=== PATIENT | male | born 1945 | race Caucasian/White ===

== ENCOUNTER 2024-10-03 13:16 | Emergency (ER) | payer MEDICARE, SELFPAY ==
[2024-10-03 13:26] VITALS: PULSE 67; TEMP 36.7; O2SAT 95; BMI 36.2
[2024-10-03 13:39] VITALS: BP 142/77
--- NOTE | 2024-10-03 13:40 | XR_ITS ---
The [address] [address] Patient Name: GABBIE AUGUSTE MRN: [id number] date: 1945 Sex: M Assigned Patient Location: ER Current Patient Location: ER Accession/Order Number: [id number] Exam Date: 10/03/2024 14:03 Report Date: 10/03/2024 14:29 At the request of: DARYL PALMA Procedure: XR chest 2V EXAMINATION: XR chest 2V HISTORY: cough COMPARISON: No relevant comparison available. TECHNIQUE: PA and lateral FINDINGS: LUNGS: No significant pulmonary parenchymal abnormalities. Low lung volumes VASCULATURE: No increased pulmonary vasculature. PLEURA: No pneumothorax, effusion, or pleural thickening. CARDIAC: No cardiomegaly or cardiac silhouette abnormality. MEDIASTINUM: No visible mass or adenopathy. Left pacemaker. Median sternotomy wires BONES: No fracture or visible bone lesion. OTHER: Negative. XR/XR chest 2V IMPRESSION: Low volume exam, clear lungs Electronically authenticated by: ORI BURGESS Date: 10/03/2024 14:29
--- NOTE | 2024-10-03 13:40 | ED.URI1 ---
HPI - URI/Sore Throat General Chief Complaint: Upper Respiratory Infection Stated Complaint: GENRAL WEAKNESS Time Seen by Provider: 10/03/24 13:33 Source: patient Limitations: no limitations History of Present Illness HPI Narrative: C/o cough, sinus congestion/drainage/pressure, ear pain, sore throat. Pain to the left ear is greater than the right. Onset was 1-2 days ago. He was evaluated at another ER and an urgent care today prior to coming to the [place] ER. Pt states he has had two negative Covid-19 and influenza tests today. Denies fever, chills, SOB, N/V/D. Today the [facility] in [place] prescribed tessalon perles for his cough and wwaqiprw-ldumtgoby-BC drops for otitis externa. The patient has not picked up the prescriptions. States his left ear has continued to have pain. He has not had medication for his discomfort today. Related Data Home Medications ?Medication ?Instructions ?Recorded ?Confirmed apixaban 5 mg tablet (Eliquis) 5 mg PO BID 10/03/24 10/03/24 Previous Rx's ?Medication ?Instructions ?Recorded guaifenesin 600 mg tablet, 600 mg PO BID PRN congestion #10 10/03/24 extended release 12 hr (Mucinex) tabs prednisone 20 mg tablet 40 mg (2 x 20 mg) PO DAILY 5 days 10/03/24 #10 tabs Allergies Allergy/AdvReac Type Severity Reaction Status Date / Time Sulfa (Sulfonamide Allergy Mild Rash Verified 10/03/24 13:31 Antibiotics) Review of Systems ROS Constitutional Denies: fever or chills Ears, nose, mouth, and throat Reports: throat pain; Denies: neck pain Cardiovascular Denies: chest pain Respiratory Denies: shortness of breath Gastrointestinal Denies: abdominal pain, nausea, vomiting or diarrhea Musculoskeletal Denies: back pain or neck pain Integumentary/Breast Denies: rash Neurological Denies: headache, numbness in extremities or dizziness PFSH PFSH Social History Little interest or pleasure in doing things: not at all Feeling down, depressed, or hopeless: not at all Exam Constitutional Vital Signs, click to edit/add: Last Vital Signs Temp 98.1 F 10/03/24 13:26 Pulse 67 10/03/24 13:26 Resp 17 10/03/24 13:26 BP 142/77 H 10/03/24 13:39 Pulse Ox 95 10/03/24 13:26 O2 Del Method Room Air 10/03/24 13:26 Common normals: no apparent distress and oriented x3 General appearance: cooperative HENMT Common normals: normocephalic Face and sinus: normal facial exam Nose: external nose normal External ear: external ears normal External auditory canal: EAC abnormal EAC laterality: left erythema and EAC tenderness Tympanic membrane: TMs normal bilaterally Mouth: oral and palatal mucosa normal, lip normal and tongue normal Throat: posterior oropharynx normal and uvula midline Eye Common normals: conjunctivae normal Neck & C-Spine Common normals: supple Respiratory Common normals: normal respiratory effort, no use of accessory muscles and clear to auscultation bilaterally Effort & inspection: able to speak in complete sentences and symmetric chest movement Cardio Common normals: regular rate and regular rhythm Neuro Common normals: oriented x3 and moves all extremities Sensorium/orientation: awake and alert Course Vital Signs Vital signs: Vital Signs Temperature 98.1 F 10/03/24 13:26 Pulse Rate 67 10/03/24 13:26 Respiratory Rate 17 10/03/24 13:26 Pulse Oximetry 95 10/03/24 13:26 Oxygen Delivery Method Room Air 10/03/24 13:26 Temperature 98.1 F 10/03/24 13:26 Pulse Rate 67 10/03/24 13:26 Respiratory Rate 17 10/03/24 13:26 Blood Pressure 142/77 H 10/03/24 13:39 Pulse Oximetry 95 10/03/24 13:26 Oxygen Delivery Method Room Air 10/03/24 13:26 MDM - URI/Sore Throat MDM Narrative Medical decision making narrative: Strep screen was negative. Chest x-ray was negative for acute findings. Pt reported two negative Covid-19 and influenza tests today at two other facilities. Earlier today pt was given prescriptions for Tessalon perles and dfymlmva-oahtbelrp-BV drops for left otitis externa. Prescriptions were provided for Mucinex and prednisone. Follow up with pcp for a recheck, further evaluation and treatment. Return to the ER for new or worsening symptoms. Differential Diagnosis Differential diagnosis: Likely upper respiratory infection, otitis media, viral infection, bronchitis and pharyngitis Medical Records Attestation: I reviewed the patient's medical records. Lab Data Attestation: I reviewed the patient's lab results. Labs: Lab Results 10/03/24 Range/Units 13:45 Streptococcus Screen Negative Discharge Plan Discharge Chief Complaint: Upper Respiratory Infection Clinical Impression: Upper respiratory infection, viral, Otitis externa Patient Disposition: Home, Self-Care Time of Disposition Decision: 14:38 Condition: Good Mode of Transportation: Private Vehicle Prescriptions / Home Meds: New guaifenesin [Mucinex] 600 mg tablet extended release 12hr 600 mg PO BID PRN (Reason: congestion) Qty: 10 0RF prednisone 20 mg tablet 40 mg PO DAILY 5 Days Qty: 10 0RF No Action Eliquis 5 mg tablet 5 mg PO BID Print Language: Latvian Instructions: Swimmer's Ear (ED), Upper Respiratory Infection (ED) Additional Instructions: Return to the ER for new or worsening symptoms. Use the antibiotic ear drops you were prescribed as directed. Referrals: RAUL MYRICK [Primary Care Provider] - 1 week Discharge Date/Time: 10/03/24 14:53
[2024-10-03] MEDS: DEXAMETHASONE SOD PHOS 10 MG/ML VIAL PO (13:56)
[2024-10-03] MEDS: ACETAMINOPHEN 500 MG TABLET PO (13:57)
[2024-10-03] MEDS: CETIRIZINE HCL 10 MG TABLET PO (13:57)
[2024-10-03 14:06] LABS: Internal Control Within Normal Limits; Strep A Antigen Screen Negative
== END 2024-10-03 14:53 | disposition home or self-care (01) ==
PROVIDERS: Nurse Practitioner Family; Emergency Provider Emergency Medicine; PCP Internal Medicine
DX: J06.9 Acute upper respiratory infection, unspecified (principal); H60.92 Unspecified otitis externa, left ear
CPT/HCPCS: 71046; 87070; 87880; 99284; J1100

== ENCOUNTER 2024-11-17 04:56 | Emergency (ER) | payer MEDICARE, SELFPAY ==
[2024-11-17 04:58] VITALS: BP 147/60; PULSE 70; TEMP 37; O2SAT 96; BMI 35.4
--- NOTE | 2024-11-17 05:09 | XR_ITS ---
The [address] [address] Patient Name: GABBIE AUGUSTE MRN: [id number] date: 1945 Sex: M Assigned Patient Location: ER Current Patient Location: ER Accession/Order Number: [id number] Exam Date: 11/17/2024 05:25 Report Date: 11/17/2024 05:43 At the request of: MATTHIAS WASHBURN Procedure: XR chest 1V EXAM: XR chest 1V HISTORY: Cough COMPARISON: Chest radiograph dated 10/03/2024. TECHNIQUE: AP erect portable chest radiograph performed. FINDINGS: Stable median sternotomy wires. Stable left subclavian dual-lead pacemaker with leads overlying the right atrium and the right ventricle. Stable mild prominence of the cardiac silhouette. Stable mild atheromatous calcification at the aortic arch. Persistently low lung volumes. There is mild linear density at the right lung base which most likely is atelectasis. There is no additional consolidation, pleural effusion or pulmonary vascular congestion. There is no pneumothorax or acute osseous abnormality. XR/XR chest 1V IMPRESSION: Persistently low lung volumes. There is mild linear density at the right lung base which most likely is atelectasis. There is no additional consolidation, pleural effusion or pulmonary vascular congestion. Electronically authenticated by: LENORE MORRIS Date: 11/17/2024 05:43
--- NOTE | 2024-11-17 05:09 | ED.URI1 ---
HPI - URI/Sore Throat General Chief Complaint: Upper Respiratory Infection Stated Complaint: SINUS Time Seen by Provider: 11/17/24 05:06 Source: patient History of Present Illness HPI Narrative: 79-year-old male presents for cough and congestion. He has been coughing up some clear phlegm, no hemoptysis and he has not had a fever. He has had the symptoms for a few days. He was worried about having pneumonia. Related Data Home Medications ?Medication ?Instructions ?Recorded ?Confirmed apixaban 5 mg tablet (Eliquis) 5 mg PO BID 10/03/24 10/03/24 Previous Rx's ?Medication ?Instructions ?Recorded guaifenesin 600 mg tablet, 600 mg PO BID PRN congestion #10 10/03/24 extended release 12 hr (Mucinex) tabs prednisone 20 mg tablet 40 mg (2 x 20 mg) PO DAILY 5 days 10/03/24 #10 tabs benzonatate 100 mg capsule 100 mg PO TID PRN cough #20 caps 11/17/24 loratadine 5 mg-pseudoephedrine ER 1 tab PO Q12H PRN nasal congestion 11/17/24 120 mg tablet,extended #20 tabs release,12hr (Claritin-D 12 Hour) Allergies Allergy/AdvReac Type Severity Reaction Status Date / Time Sulfa (Sulfonamide Allergy Mild Rash Verified 10/03/24 13:31 Antibiotics) Review of Systems ROS Narrative A ten point review of systems is negative except as noted above. PFSH PFSH Social History Little interest or pleasure in doing things: not at all Feeling down, depressed, or hopeless: not at all Exam Narrative Exam Narrative: Nurses note and vital signs reviewed and patient is not hypoxic. General: The patient coughs frequently and is in no acute respiratory distress Skin: Warm, dry, no pallor noted. There is no rash noted. Head: Normocephalic, atraumatic Eye: Normal conjunctiva, no drainage Ears, Nose, Mouth, and Throat: oral mucosa is moist. Nares patent. Cardiovascular: Regular Rate and Rhythm Respiratory: Coughs frequently, no accessory muscle use, lungs are clear to auscultation, no wheezing, rales or rhonchi Back: non-tender GI: Soft and nontender Musculoskeletal: The patient has no evidence of calf tenderness, no pitting edema, symmetrical pulses noted bilaterally Neurological: A&O, normal speech Psychiatric: Cooperative Constitutional Vital Signs, click to edit/add: Last Vital Signs Temp 98.6 F 11/17/24 04:58 Pulse 70 11/17/24 04:58 Resp 20 11/17/24 04:58 BP 147/60 H 11/17/24 04:58 Pulse Ox 96 11/17/24 04:58 O2 Del Method Room Air 11/17/24 04:58 Course Vital Signs Vital signs: Vital Signs Temperature 98.6 F 11/17/24 04:58 Pulse Rate 70 11/17/24 04:58 Respiratory Rate 20 11/17/24 04:58 Blood Pressure 147/60 H 11/17/24 04:58 Pulse Oximetry 96 11/17/24 04:58 Oxygen Delivery Method Room Air 11/17/24 04:58 Temperature 98.6 F 11/17/24 04:58 Pulse Rate 70 11/17/24 04:58 Respiratory Rate 20 11/17/24 04:58 Blood Pressure 147/60 H 11/17/24 04:58 Pulse Oximetry 96 11/17/24 04:58 Oxygen Delivery Method Room Air 11/17/24 04:58 MDM - URI/Sore Throat MDM Narrative Medical decision making narrative: The patient's workup is negative. My clinical impression is that he has a viral URI and he will be treated symptomatically. Treatment diagnosis and follow-up were discussed with the patient. Differential Diagnosis Differential diagnosis: Likely upper respiratory infection, viral infection, influenza and other (COVID, pneumonia) Lab Data Labs: Lab Results 11/17/24 Range/Units 05:05 Influenza Type A Ag Negative Influenza Type B Ag Negative SARS-CoV-2 Ag (CV2AG) Negative (NEGATIVE) Imaging Data Chest x-ray: Radiologist's impression: ITS Impressions Chest X-Ray 11/17/24 05:09 IMPRESSION: Persistently low lung volumes. There is mild linear density at the right lung base which most likely is atelectasis. There is no additional consolidation, pleural effusion or pulmonary vascular congestion. Electronically authenticated by: LENORE MORRIS Date: 11/17/2024 05:43 Discharge Plan Discharge Chief Complaint: Upper Respiratory Infection Clinical Impression: Upper respiratory infection, viral Patient Disposition: Home, Self-Care Time of Disposition Decision: 05:53 Condition: Good Mode of Transportation: Private Vehicle Prescriptions / Home Meds: New benzonatate 100 mg capsule 100 mg PO TID PRN (Reason: cough) Qty: 20 0RF Claritin-D 12 Hour 5-120 mg tablet extended release 12 hr 1 tab PO Q12H PRN (Reason: nasal congestion) Qty: 20 0RF No Action Eliquis 5 mg tablet 5 mg PO BID guaifenesin [Mucinex] 600 mg tablet extended release 12hr 600 mg PO BID PRN (Reason: congestion) Qty: 10 0RF prednisone 20 mg tablet 40 mg PO DAILY 5 Days Qty: 10 0RF Print Language: Lithuanian Instructions: Upper Respiratory Infection (ED) Referrals: RAUL MYRICK [Primary Care Provider] - 1 week
[2024-11-17 05:23] LABS: Influenza Virus A Antigen Negative; Influenza Virus B Antigen Negative; Internal Control Within Normal Limits; SARS-CoV-2 Ag NEGATIVE (NEGATIVE)
[2024-11-17] MEDS: BENZONATATE 100 MG CAPSULE PO (06:16)
== END 2024-11-17 06:26 | disposition home or self-care (01) ==
PROVIDERS: Emergency Provider Emergency Medicine; PCP Internal Medicine
DX: J06.9 Acute upper respiratory infection, unspecified (principal); Z95.0 Presence of cardiac pacemaker
CPT/HCPCS: 71045; 87804; 87811; 99284